=== PATIENT | male | born 1970 | race Caucasian/White ===

== ENCOUNTER 2018-01-08 06:33 | Day surgery (SDC) | payer BC, OTHER ==
[~2018-01-08] VITALS: Ht 190.5 cm; Wt 102.3 kg
[2018-01-08] MEDS ORDERED: SODIUM CHLORIDE 0.9% 1,000 ML IV SCH (07:01)
[2018-01-08 07:06] VITALS: BP 142/90
[2018-01-08] MEDS ORDERED: NO HOME MEDICATIONS PO (07:20)
[2018-01-08] MEDS ORDERED: ADENOSINE 6 MG/2 ML ONE (07:52)
[2018-01-08] MEDS ORDERED: LIDOCAINE 2%, 20ML ONE (07:52)
[2018-01-08] MEDS ORDERED: FENTANYL PF 100 MCG/2ML ONE (07:52)
[2018-01-08] MEDS ORDERED: ISOPROTERENOL 0.2MG/ML, 5ML ONE (07:52)
[2018-01-08] MEDS ORDERED: MIDAZOLAM 1 MG/ML, 2ML ONE (07:52)
== END 2018-01-08 14:06 ==
LOC: CACL 06:33
PROVIDERS: ATTEND Internal Medicine Cardiovascular Disease
DX: I47.1 Supraventricular tachycardia (principal); F17.218 Nicotine dependence, cigarettes, with other nicotine-induced disorders; Z88.1 Allergy status to other antibiotic agents; Z88.8 Allergy status to other drugs, medicaments and biological substances
CPT/HCPCS: 71046; 93613; 93621; 93623; 93653; 99156; 99157; C1730; C1766; C1894; C2630; J2250; J3010; J3490; J0153